=== PATIENT | female | born 1965 | race Caucasian/White ===

== ENCOUNTER 2022-06-22 09:16 | Emergency (ER) | payer MEDICARE, SELFPAY ==
--- NOTE | ~2022-06-22 | XR_ITS ---
XR hip RT 2V w AP pelvis 06/22/2022 10:30 INDICATION: Right hip pain PROCEDURE: AP pelvis and 2 views right hip COMPARISON: No prior studies for comparison. FINDINGS: Fracture, dislocation or subluxation is not identified. The soft tissues appear within norm al limits. No foreign bodies are identified. IMPRESSION: 1: NO ACUTE BONE OR JOINT ABNORMALITY IDENTIFIED. Reviewed, dictated and finalized at location A.
--- NOTE | ~2022-06-22 | XR_ITS ---
XR knee RT min 4V 06/22/2022 10:30 INDICATION: Right knee pain PROCEDURE: 4 views right knee COMPARISON: No prior studies for comparison. FINDINGS: Fracture, dislocation or subluxation is not identified. No significant joint effusion. The soft tissues appear within normal limits. No foreign bodies are identified. IMPRESSION: 1: NO ACUTE BONE OR JOINT ABNORMALITY IDENTIFIED. Reviewed, dictated and finalized at location A.
--- NOTE | ~2022-06-22 | CT_ITS ---
EXAMINATION: CT cervical spine wo con DATE: 06/22/2022 09:54 INDICATION: Status post fall. TECHNIQUE: Computed tomography (CT) of the cervical spine was performed without intravenous contrast. The dose-length product was 274 mGy-cm. Automated exposure control and iterative reconstruction tech [id number] were employed. COMPARISON: None FINDINGS: Straightening of cervical lordosis. Vertebral body heights are maintained. Craniovertebral junction is normal. Odontoid process within normal limits. There is mild uncinate degenerative change at all cervical spine levels. No evidence for perched facet. Craniovertebral junction is normal. Walter g apices are normal. IMPRESSION: 1. No acute abnormality of the cervical spine. 2: Mild cervical spondylosis. Reviewed, dictated and finalized at location A.
--- NOTE | ~2022-06-22 | CT_ITS ---
EXAMINATION: CT BRAIN W/O DATE: 06/22/2022 09:55 INDICATION: Status post fall with head injury. TECHNIQUE: Computed tomography (CT) of the head was performed without intravenous contrast. The dose- length product was 605.33 mGy-cm. Automated exposure control and iterative reconstruction technique w ere employed. COMPARISON: No prior studies for comparison. FINDINGS: Normal brain parenchymal volume for age. Normal rosario-white differentiation. No acute intrac ranial hemorrhage, infarction, mass or mass effect. No ventriculomegaly or midline shift. Midline sagittal images demonstrate a normal corpus callosum, c raniovertebral junction and sella turcica. Basilar cisterns are patent. Paranasal sinuses and mastoids are pneumatized. No depressed skull fractures. IMPRESSION: 1. No acute intracranial abnormality. Reviewed, dictated and finalized at location A.
--- NOTE | ~2022-06-22 | XR_ITS ---
EXAMINATION: XR knee LT 3V DATE: 06/22/2022 10:30 INDICATION: Left knee pain post fall TECHNIQUE: Anteroposterior, oblique and crosstable lateral views of the left knee were obtained COMPARISON: None. FINDINGS: Alignment is normal. No fracture. No joint effusion/layering lipohemarthrosis. Tiny round other loos e body or degenerative heterotopic ossicle projecting over the medial side of Hoffa's fat pad. Soft t issues are otherwise unremarkable. IMPRESSION: 1. No left knee joint effusion or osseous abnormality. Reviewed, dictated and finalized at location A.
--- NOTE | ~2022-06-22 | CT_ITS ---
EXAMINATION: CT lumbar spine wo con DATE: 06/22/2022 09:54 INDICATION: Back pain after fall TECHNIQUE: Computed tomography (CT) of the lumbar spine was performed without intravenous contrast. T he dose-length product was 613.17 mGy-cm. Automated exposure control and iterative reconstruction patric hnique were employed. COMPARISON: No prior studies for comparison. FINDINGS: There is subtle retrolisthesis measuring 1 mm at L1-2. There is mild disc narrowing at L1-2 . No acute fracture or traumatic malalignment is identified. There is mild levoscoliosis. There is mi ld thickening of the sigmoid colon. There is atherosclerosis of the aorta. Sacrum is unremarkable. IMPRESSION: 1. No acute abnormality of the lumbar spine. 2: Abnormal thickening of the sigmoid colon which may be due to underdistention, colitis, although ma ss cannot be excluded. Recommend GI consultation. 3: Mild lumbar spondylosis. Reviewed, dictated and finalized at location A. IMPRESSION: 1. No acute abnormality of the lumbar spine. 2: Abnormal thickening of the sigmoid colon which may be due to underdistention , colitis, although mass cannot be excluded. Recommend GI consultation. 3: Mild lumbar spondylosis.
--- NOTE | ~2022-06-22 | XR_ITS ---
XR shoulder RT min 2V, XR humerus RT 06/22/2022 10:30 Indication: Right arm pain after fall Procedure: 4 views right shoulder and 2 views right humerus Comparison: No prior studies for comparison. Findings: There is a nondisplaced fracture of the humeral head at the greater tuberosity. Surrounding osseous structures within normal limits. There is anatomic alignment of the shoulder. No other fract ure identified. No foreign bodies. Impression: 1: Nondisplaced proximal right humeral fracture at the greater tuberosity. Reviewed, dictated and finalized at location A. Impression: 1: Nondisplaced proximal right humeral fracture at the greater tuberosity. Impression: 1: Nondisplaced proximal right humeral fracture at the greater tuberosity.
--- NOTE | ~2022-06-22 | XR_ITS ---
EXAMINATION: XR foot RT min 3V DATE: 06/22/2022 10:30 INDICATION: Right foot pain post fall TECHNIQUE: Dorsoplantar, two oblique and lateral views of the right foot were obtained. COMPARISON: 11/27/2019 FINDINGS: Bone alignment is normal. Subtle healed fracture deformity at the base of the fifth metatarsal which is healed in near-anatomic alignment. No acute fractures identified. Mild polyarticular osteoarthriti s at the first metatarsophalangeal and a few of the tarsal metatarsal and interphalangeal joints. IMPRESSION: 1. Mild polyarticular osteoarthritis in the mid and forefoot. No acute osseous abnormality. Reviewed, dictated and finalized at location A.
[2022-06-22 09:22] VITALS: BP 148/63; PULSE 88; RESP 18; TEMP 36.6; O2SAT 99
--- NOTE | 2022-06-22 12:30 | ED.FALL ---
HPI - Fall General Chief Complaint: Fall Stated Complaint: right upper arm injury x 2 days Source: RN notes reviewed History of Present Illness HPI Narrative: Patient presents emergency department from home via EMS for fall. Patient states she slipped on a rug 2 days ago and fell landing on her right side she states that since that time she has had diffuse pain with increased pain in the right shoulder she notes pain in the right shoulder is worse with any movement states she does not believe that she struck her head or had loss of consciousness but does note a headache she also notes neck pain since the fall. Patient states that she has had pain in her lower back as well as in her right knee and foot and her left knee and her right hip states she has been able to walk at home she states she took a Percocet this morning which she takes for chronic pain she denies any chest pain shortness of breath numbness or tingling in the extremities Related Data Home Medications Medication Instructions Recorded Confirmed amitriptyline 25 mg tablet 11/27/19 atorvastatin 20 mg tablet 11/27/19 baclofen 10 mg tablet mg 11/27/19 escitalopram oxalate 20 mg tablet mg 11/27/19 glipizide 2.5 mg tablet, extended mg PO 11/27/19 release 24 hr metformin 500 mg tablet,extended mg PO 11/27/19 release 24 hr methylnaltrexone 150 mg tablet mg 11/27/19 (Relistor) metoprolol succinate 50 mg PO 11/27/19 tablet,extended release 24 hr modafinil 200 mg tablet mg 11/27/19 pregabalin 100 mg capsule 11/27/19 pregabalin 100 mg capsule (Lyrica) 11/27/19 sertraline 50 mg tablet mg 11/27/19 valsartan 160 tablet 11/27/19 mg-hydrochlorothiazide 12.5 mg tablet Allergies Allergy/AdvReac Type Severity Reaction Status Date / Time No Known Allergies Allergy Verified 10/15/12 14:51 NKDA Allergy Unknown Uncoded 10/16/09 13:41 Review of Systems Review of Systems: Gen.: Denies fevers or chills Eyes: Denies eye pain or visual change ENT: Denies congestion Respiratory: Denies shortness of breath or cough CV: Denies chest pain or palpitations GI: Denies abdominal pain nausea, emesis or diarrhea Musculoskeletal: See HPI Neuro: Reports headache denies numbness or tingling Skin: Denies rash Except as documented, all other systems reviewed and negative [facility] Past Medical History Medical History (Updated 06/22/22 @ 12:37 by Kingsley Murphy DO) History of multiple sclerosis Family History Family History (Updated 03/03/17 @ 15:16 by DOCTOR UNKNOWN) Mother Family history unknown, Onset Age: 72 Father Family history of emphysema, Onset Age: 78 Social History Social History Smoking status: Heavy tobacco smoker Alcohol intake: never Gender identity (if verbalized by the patient): Female Exam Narrative: APPEARANCE: No acute distress, nontoxic, resting in bed EYES: EOMI, PERRL HEENT: Normocephalic, atraumatic, OMM Neck: Supple tender to palpation of the bilateral paravertebral muscles C5-7 no midline tenderness palpation RESPIRATORY: No respiratory distress Clear to auscultation bilaterally with no rhonchi wheezing or rales. CARDIOVASCULAR: Regular rate and rhythm without murmurs rubs or gallops. ABDOMINAL: Soft, nontender, nondistended, no rebound or guarding MUSCULOSKELETAl: No clubbing, cyanosis or edema. Tender to palpation in the right anterior and lateral shoulder as well as the right mid humerus no swelling mild ecchymosis pain with any movement right shoulder no tenderness of the right elbow or wrist radial pulse 2+ neurovascular intact no tenderness of the left upper extremity, tender to palpation over the right anterior lateral hip as well as the right anterior knee and diffusely of the right dorsal foot there is no tenderness of the right ankle dorsalis pedis pulses 2+ neurovascular intact tender to palpation of the left knee over the
== END 2022-06-22 13:17 | disposition home or self-care (01) ==
PROVIDERS: Emergency Provider Emergency Medicine; PCP Family Medicine
DX: S42.254A Nondisplaced fracture of greater tuberosity of right humerus, initial encounter for closed fracture (principal); S16.1XXA Strain of muscle, fascia and tendon at neck level, initial encounter; S70.01XA Contusion of right hip, initial encounter; S90.31XA Contusion of right foot, initial encounter; S80.01XA Contusion of right knee, initial encounter; S00.93XA Contusion of unspecified part of head, initial encounter; S39.92XA Unspecified injury of lower back, initial encounter; G35 Multiple sclerosis; Z79.84 Long term (current) use of oral hypoglycemic drugs; F17.200 Nicotine dependence, unspecified, uncomplicated; M47.812 Spondylosis without myelopathy or radiculopathy, cervical region; M47.816 Spondylosis without myelopathy or radiculopathy, lumbar region; W18.09XA Striking against other object with subsequent fall, initial encounter
CPT/HCPCS: 70450; 72125; 72131; 73030; 73060; 73502; 73562; 73564; 73630; 99284; A4565

== ENCOUNTER 2022-08-11 00:34 | Day surgery (SDC) | payer MEDICARE, SELFPAY ==
[2022-07-29 08:45] VITALS: BMI 26.2
--- NOTE | 2022-08-10 14:53 | WPDANESEPPF ---
Anes - Initial Pre Proc Eval Procedure: Operation Date: 08/11/22 10:30 Proposed Procedures p Colonoscopy - Tung Carr MD Date/Time: 08/10/22 14:53 Surgeon: Tung Carr MD Pre Op Diagnosis: Abnormal CT scan Patient Data Age: 57 Gender: F Height: 1.52 m Weight: 61 kg Allergies Allergy/AdvReac Type Severity Reaction Status Date / Time No Known Allergies Allergy Verified 08/11/22 09:24 Home Medications Medication Instructions Recorded Confirmed Type baclofen 10 mg tablet 10 mg PO BID 11/27/19 07/29/22 History glipizide 2.5 mg tablet, extended 2.5 mg PO DAILY 11/27/19 07/29/22 History release 24 hr modafinil 200 mg tablet 200 mg PO BID 11/27/19 07/29/22 History pregabalin 100 mg capsule (Lyrica) 100 mg PO 11/27/19 06/25/22 History sertraline 50 mg tablet 100 mg PO HS 11/27/19 07/29/22 History meloxicam 7.5 mg tablet 7.5 mg PO BID PRN pain #60 tabs 06/25/22 07/29/22 Rx alendronate 70 mg tablet 70 mg PO WEEKLY 07/29/22 07/29/22 History insulin glargine 100 unit/mL (3 18 unit subcut QPM 07/29/22 07/29/22 History mL) subcutaneous pen (Lantus Solostar U-100 Insulin) naloxegol 25 mg tablet (Movantik) 25 mg PO DAILY 07/29/22 07/29/22 History oxycodone-acetaminophen 10 mg-325 See Rx Instructions .Route .COMPLEX 07/29/22 07/29/22 History mg tablet saxagliptin 5 mg tablet (Onglyza) 5 mg PO DAILY 07/29/22 07/29/22 History telmisartan 40 mg tablet 40 mg PO DAILY 07/29/22 07/29/22 History Patient hx anesthesia problems: none Family hx anesthesia problems: none Results Review: All pre-operative results and documents have been reviewed as part of the pre-operative evaluation. [facility] Past Medical History Medical History (Updated 08/10/22 @ 14:54 by Yves Ramsay DO) Abnormal CT scan, sigmoid colon Anxiety Constipation Diabetes type 2, controlled History of multiple sclerosis Hypertension Family History Family History Mother Family history unknown, Onset Age: 72 Father Family history of emphysema, Onset Age: 78 Social History Social History (Updated 06/25/22 @ 13:33 by Zahida Velez CMA) Years smoked: 34 Smoking status: Current every day smoker Tobacco type: cigarettes Alcohol intake: never Substance use: current Substance use type: marijuana Living arrangements: with family Gender identity (if verbalized by the patient): Female Spiritual care concerns: No Anes - Eval Final PreProcedure Day of Procedure 08/10/22 14:53 Patient weight: overweight Heart: regular rate and rhythm Lungs: clear to auscultation Airway: Mallampati scale class II Neurological: alert and oriented Last oral intake: >/= 8 hours ASA classification: III Emergent: no Anesthetic plan: proceed Anesthesia type and monitoring: general GIVS and standard monitoring Results Review: All pre-operative results and documents have been reviewed as part of the pre-operative evaluation. Informed Consent: The patient's anesthetic plan and its attendant risks and benefits were discussed with the patient/family/POA. Questions were solicited and answers provided to the satisfaction of the patient/family/POA.
[2022-08-11 09:24] LABS: Glucose Point of Care 165 mg/dl (65-105)
[2022-08-11 09:25] VITALS: BP 115/66; PULSE 65; RESP 16; TEMP 36.3; O2SAT 100; BMI 26.3
[2022-08-11] MEDS: LACTATED RINGERS 1,000 ML 150 ML IV CONT (09:36)
--- NOTE | 2022-08-11 10:15 | PM.HPGS ---
History of Present Illness History of Present Illness Consent: Risks, benefits, and alternatives have been discussed and questions answered. Patient agrees to proceed with procedure. Chief complaint: Abnormal CT scan Narrative: Angelito Shields is a 57 year old female with chronic constipation on meds (h/o MS), incidental finding of thickened sigmoid by CT scan. Last colonoscopy about 20 years ago. Review of Systems Constitutional: Constitutional: Denies headache(s) and Denies weakness Eyes: Eyes: Denies blurry vision ENT: Reports Normal hearing present, Denies headache(s) and Denies neck pain Cardiovascular: Cardiovascular: Denies chest pain and Denies dyspnea Respiratory: Respiratory: Denies dyspnea Gastrointestinal: Gastrointestinal: Reports no additional gastrointestinal complaints Genitourinary: Genitourinary: Denies dysuria Musculoskeletal: Musculoskeletal: Denies neck pain Integumentary/Breasts: Skin/Breast: Denies dry skin Neurologic: Reports Normal hearing present, Denies headache(s) and Denies weakness Psychiatric: Psychiatric: Denies anxiety Endocrine: Endocrine: Denies change in body appearance Hematologic/Lymphatic: Hematologic/Lymphatic: Denies easy bleeding Allergic/Immunologic: Allergic/Immunologic: Denies urticaria PMFSH Past Medical History Medical History (Updated 08/10/22 @ 14:54 by Yves Ramsay DO) Abnormal CT scan, sigmoid colon Anxiety Constipation Diabetes type 2, controlled History of multiple sclerosis Hypertension Family History Family History Mother Family history unknown, Onset Age: 72 Father Family history of emphysema, Onset Age: 78 Social History Social History (Updated 06/25/22 @ 13:33 by Zahida Velez CMA) Years smoked: 34 Smoking status: Current every day smoker Tobacco type: cigarettes Alcohol intake: never Substance use: current Substance use type: marijuana Living arrangements: with family Gender identity (if verbalized by the patient): Female Spiritual care concerns: No Meds Home Medications and Allergies Home Medications Medication Instructions Recorded Confirmed Type baclofen 10 mg tablet 10 mg PO BID 11/27/19 07/29/22 History glipizide 2.5 mg tablet, extended 2.5 mg PO DAILY 11/27/19 07/29/22 History release 24 hr modafinil 200 mg tablet 200 mg PO BID 11/27/19 07/29/22 History pregabalin 100 mg capsule (Lyrica) 100 mg PO 11/27/19 06/25/22 History sertraline 50 mg tablet 100 mg PO HS 11/27/19 07/29/22 History meloxicam 7.5 mg tablet 7.5 mg PO BID PRN pain #60 tabs 06/25/22 07/29/22 Rx alendronate 70 mg tablet 70 mg PO WEEKLY 07/29/22 07/29/22 History insulin glargine 100 unit/mL (3 18 unit subcut QPM 07/29/22 07/29/22 History mL) subcutaneous pen (Lantus Solostar U-100 Insulin) naloxegol 25 mg tablet (Movantik) 25 mg PO DAILY 07/29/22 07/29/22 History oxycodone-acetaminophen 10 mg-325 See Rx Instructions .Route .COMPLEX 07/29/22 07/29/22 History mg tablet saxagliptin 5 mg tablet (Onglyza) 5 mg PO DAILY 07/29/22 07/29/22 History telmisartan 40 mg tablet 40 mg PO DAILY 07/29/22 07/29/22 History Allergies Allergy/AdvReac Type Severity Reaction Status Date / Time No Known Allergies Allergy Verified 08/11/22 09:24 Vital Signs Vital Signs - 24 hr 08/11/22 09:25 Temperature 97.3 F L Pulse Rate 65 Respiratory Rate 16 Blood Pressure 115/66 Pulse Oximetry 100 Exam Const: General: comfortable and no acute distress HENMT: General nose exam: Normal nares present Eyes: General: appearance normal, both eyes and all related structures Neck: Neck: no JVD Resp: Auscultation: clear to auscultation bilaterally Cardio: Rate: regular rate Rhythm: regular rhythm GI: Inspection: non-distended GI Palp: Yes Soft to palpation Skin: General skin exam: normal color Neuro: General: gait normal Sp
[2022-08-11 10:41] VITALS: BP 103/51; PULSE 66; RESP 14; O2SAT 100
[2022-08-11 10:51] VITALS: BP 110/63; PULSE 68; RESP 17; O2SAT 100
[2022-08-11 11:01] VITALS: BP 127/59; PULSE 57; RESP 15; O2SAT 98
== END 2022-08-11 11:20 | disposition home or self-care (01) ==
PROVIDERS: PCP Family Medicine; Visit Provider Internal Medicine Gastroenterology
PROC: 0DJD8ZZ Inspection of Lower Intestinal Tract, Via Natural or Artificial Opening Endoscopic (ICD-10-PCS; CPT 45378; principal; 2022-08-11 10:30)
DX: Z12.11 Encounter for screening for malignant neoplasm of colon (principal); K59.00 Constipation, unspecified; K63.89 Other specified diseases of intestine; K64.8 Other hemorrhoids; F41.9 Anxiety disorder, unspecified; E11.9 Type 2 diabetes mellitus without complications; G35 Multiple sclerosis; I10 Essential (primary) hypertension; F17.210 Nicotine dependence, cigarettes, uncomplicated; F12.90 Cannabis use, unspecified, uncomplicated; Z79.4 Long term (current) use of insulin
CPT/HCPCS: G0121; 82948; J2704; J7120